=== PATIENT | male | born 1985 | race Caucasian/White ===

== ENCOUNTER 2020-12-18 20:41 | Inpatient (IN) | payer SELFPAY ==
[~2020-12-18] VITALS: Ht 167.6 cm; Wt 92.6 kg
[~2020-12-18 20:41] MED LIST: BACTRIM DS 8001 TAB PO; PERCOCET 325 MG1 TA2 PO; ULTRAM 50MG TAB50 MG PO
[2020-12-18 22:44] VITALS: BP 171/91; PULSE 91; TEMP 98.4
--- NOTE | 2020-12-18 23:15 | NUR ---
Vancomycin Initial Dosing Pharmacy Note Ordering provider: Nathaniel Patten MD 35 YO M Indication: R GREAT TOE CELLULITIS Relevant comorbidities: UNCONTROLLED DM GOAL: 10-20 HX: NO DOSING HX IDENTIFIED BMI: 27.9 WT: 78.34 KG OSH SCR: 0.8 EST CRCL ~ 141 ML/MIN T 1/2 ~ 6H OSH REPORTING AFEBRILE, WBC 8.5, CRP 3.3 MICRO IN PROCESS OSH IMAGINGING PER H&P - XRAY REPORTED NO CONCERN FOR OSTEO AND NO ABSCESS PT LOADED WITH 1.5 GM (~19 MG/KG) X 1. PT WAS THEN STARTED ON 1 GM Q8H. WILL FOLLOW RENAL FUNCTION, MICRO, AND CARE PLAN FOR NEED TO ADJUST THERAPY. THANK YOU FOR THIS DOSING CONSULT!
--- NOTE | 2020-12-18 23:17 | NUR ---
PATIENT PRESENT TO FLOOR FROM [facility], FOR RIGHT FOOT ULCER AND ELEVATED BLOOD SUGAR. VITAL STABLE, AFEBRILE. BLOOD 255 ON ADMISSION COVER ORDERED. PATIENT DENIES ANY PAIN IN THE RIGHT TOE AT THIS TIME. PATIENT A+OX4. ORIENTED TO ROON, CALL LIGHT IN REACH, BED LOW. WOUND CULTURE COLLECTED AND SENT. RIGHT TOE DRESSING DONE. WILL CONTINUE TO MONITOR.
[2020-12-18 23:26] VITALS: BP 171/91; PULSE 91; TEMP 98.4
[2020-12-18 23:50] LABS: CALCIUM 8.6 mg/dL (8.4-10.2); CREATININE, serum 0.83 (0.66-1.25); PHOSPHOROUS 4.9 mg/dL (2.5-4.5); POTASSIUM 4.2 mmol/L (3.4-5.0)
--- NOTE | 2020-12-19 02:40 | NUR ---
PATIENT RESTING IN BED. TETANUS SHOT GIVEN. WILL CONTINUE TO MONITOR.
[2020-12-19 04:21] VITALS: BP 209/109; PULSE 99; TEMP 99.5
--- NOTE | 2020-12-19 05:44 | NUR ---
PATIENT B/P 209/109, HOSPITALIST DUNIA MEYER MADE AWARE. HYDRALAZINE 10 MG IV GIVEN ORDERED. WILL CONTINUE TO MONITOR.
[2020-12-19 06:29] LABS: BASO % 0.3 % (0.0-2.0); EOS # 0.1 (0.0-0.7); EOS % 0.9 % (0-4.0); GRAN # 7.9 (1.4-6.5); GRAN % 75.7 % (42.2-75.2); HEMATOCRIT 38.1 % (42.0-52.0); HEMOGLOBIN 13.1 g/dl (13.5-18.0); LYMPH # 1.5 (1.2-3.4); LYMPH % 14.8 % (20.0-51.0); MEAN CELL VOLUME 81 fl (80.0-100.0); MEAN CORPUSCULAR HEMOGLOBIN 28 pg (27.0-31.0); MEAN CORPUSCULAR HGB CONC 34 g/dl (33.0-37.0); MEAN PLATELET VOLUME 11.2 fl (7.4-10.4); MONO # 0.8 (0.1-0.6); MONO % 7.7 % (1.7-9.3); PLATELET COUNT 440 K/mm3 (130-400); RED BLOOD COUNT 4.68 M/mm3 (4.20-5.60)
[2020-12-19 06:44] LABS: CALCIUM 8.5 mg/dL (8.4-10.2); CREATININE, serum 1.22 (0.66-1.25); POTASSIUM 3.4 mmol/L (3.4-5.0)
[2020-12-19 08:00] VITALS: BP 156/86; PULSE 92; TEMP 98.5
--- NOTE | 2020-12-19 08:19 | NUR ---
Patient sitting up on the side of the bed upon entering room. Patient seems to be doing well and has no complaints of pain. Assessment was completed and morning medications were administered. This RN assisted the patient in ordering breakfast.
[2020-12-19 11:27] VITALS: BP 147/79; PULSE 90; TEMP 98.6
[2020-12-19 16:09] VITALS: BP 196/89; PULSE 97; TEMP 99
--- NOTE | 2020-12-19 18:58 | NUR ---
Patient has done well today. Blood sugars have been running high today and insulin was administered before lunch and supper. Patient has denied any pain.
[2020-12-19 20:27] VITALS: BP 179/96; PULSE 111; TEMP 99
--- NOTE | 2020-12-19 21:21 | NUR ---
Patient laying in bed upon enter the room. Shift assessment completed. Patient alert and oriented. Patient denies any pain or discomfort. Denies SOB, N/V, headache, or dizziness. BP 179/96 at tonight. PRN Hydralazine given. All scheduled meds given per AUG. Call light within reach. Will continue to monitor.
[2020-12-19 23:54] VITALS: BP 157/80; PULSE 103; TEMP 98.8
[2020-12-20 04:13] VITALS: BP 155/83; PULSE 94; TEMP 98.6
--- NOTE | 2020-12-20 06:12 | NUR ---
BP was 155/83, BS 158 this morning. Patient denies pain or discomfort throughout the night. No acute distress noted throughout the night. Call light within reach. Will continue to monitor.
[2020-12-20 07:05] LABS: BASO % 0.3 % (0.0-2.0); EOS # 0.1 (0.0-0.7); EOS % 0.8 % (0-4.0); GRAN % 70.9 % (42.2-75.2); HEMATOCRIT 37.5 % (42.0-52.0); HEMOGLOBIN 12.5 g/dl (13.5-18.0); LYMPH # 1.9 (1.2-3.4); LYMPH % 19.1 % (20.0-51.0); MEAN CELL VOLUME 84 fl (80.0-100.0); MEAN CORPUSCULAR HEMOGLOBIN 28 pg (27.0-31.0); MEAN CORPUSCULAR HGB CONC 33 g/dl (33.0-37.0); MEAN PLATELET VOLUME 11.5 fl (7.4-10.4); MONO # 0.8 (0.1-0.6); MONO % 8.3 % (1.7-9.3); PLATELET COUNT 490 K/mm3 (130-400); RED BLOOD COUNT 4.49 M/mm3 (4.20-5.60); REDCELL DISTRIBUTION WIDTH-CV 12.3 % (11.5-14.5)
[2020-12-20 07:27] VITALS: BP 147/67; BP 154/91; PULSE 86; PULSE 87; TEMP 97.5; TEMP 98.4
--- NOTE | 2020-12-20 10:33 | NUR ---
Initial visit; Patient thanked Chaplian for looking in on him and offering prayer and God's blessings. Patient was receptive to Gun Barrel Finisher keeping him in her prayers.
[2020-12-20 10:57] VITALS: BP 181/90; PULSE 93; TEMP 98.7
--- NOTE | 2020-12-20 12:32 | NUR ---
Plan is to return home in [place] with friends/roomate and EMR contact Alexi Herreraos . Patient reports that his SIS Yohan Tamez is his secondary contact for EMR. . Patient reports that he does not have any healthcare insurance and is diabetic. Lost a toes last year. Patient reports that he uses [facility] for medicaitons. Educated client on applying for medicaid insurance and fill out financial advisor trainee packet. Will follow for supports, Denies the use of DME and his goal is to be able to return to work. Patient is tamazight speaking and will need coin collector.
[2020-12-20 15:30] VITALS: BP 198/93; PULSE 92; TEMP 98.6
--- NOTE | 2020-12-20 15:42 | NUR ---
SHOBHAE CONTACTED THIS NURSE TO INFORM OF BP AT 198/93,PT ASYMPTOMATIC. THIS NURSE ADMINISTERED HYDRALAZINE ORDERED, NURSE WILL F/U BP IN 15 MINUTES. CALL LIGHT WITHIN REACH.
--- NOTE | 2020-12-20 18:48 | NUR ---
THIS NURSE CONTACTED HOSPITALIST TO RELAY HIGH BP, HOSPITALIST INPUT ORDERS, THIS NURSE WILL REVIEW ORDERS/CHART. CALL LIGHT WITHIN REACH.
[2020-12-20 20:16] VITALS: BP 167/83; PULSE 110; TEMP 98.9
--- NOTE | 2020-12-20 22:01 | NUR ---
Shift assessment completed. Patient A/Ox4. Patient denies any pain or discomfort to his right foot. Right great toe cellulitis site dressing C/D/I. Patient denies any SOB, N/V, headache, or dizziness. All scheduled meds given per AUG. Call light within reach. Will continue to monitor.
[2020-12-21] VITALS (7 sets, daily range): BP systolic 154–204; BP diastolic 70–102; PULSE 83–108; TEMP 98.1–98.8
[2020-12-21 10:33] LABS: BASO % 0.5 % (0.0-2.0); EOS # 0.1 (0.0-0.7); EOS % 1.2 % (0-4.0); GRAN % 68.3 % (42.2-75.2); LYMPH # 1.8 (1.2-3.4); LYMPH % 20.1 % (20.0-51.0); MEAN CELL VOLUME 85 fl (80.0-100.0); MEAN CORPUSCULAR HEMOGLOBIN 28 pg (27.0-31.0); MEAN CORPUSCULAR HGB CONC 33 g/dl (33.0-37.0); MEAN PLATELET VOLUME 11.5 fl (7.4-10.4); MONO # 0.8 (0.1-0.6); MONO % 9.3 % (1.7-9.3); PLATELET COUNT 476 K/mm3 (130-400); RED BLOOD COUNT 4.33 M/mm3 (4.20-5.60); REDCELL DISTRIBUTION WIDTH-CV 12.4 % (11.5-14.5)
[2020-12-21 10:34] LABS: HEMATOCRIT 36.7 % (42.0-52.0)
[2020-12-21 10:40] LABS: CALCIUM 8.6 mg/dL (8.4-10.2); CREATININE, serum 3.51 (0.66-1.25); POTASSIUM 3.6 mmol/L (3.4-5.0)
--- NOTE | 2020-12-21 18:56 | NUR ---
PT BP RECORDED 204/102, PRN MEDICATION ADMINISTERED ORDERED, UPON F/U BP RECORDED AT 198/95, HOSPITALIST CONTACTED, ORDERS INPUT, THIS NURSE WILL ADMINISTER ONE DOSE MEDICATION ORDERED.
[2020-12-22 00:03] VITALS: BP 164/77; PULSE 95; TEMP 98.4
--- NOTE | 2020-12-22 02:36 | NUR ---
Ángel is calmly lying in bed he complains of irritation in his IV site in right forearm. RN flushed it without any leaking and flushed smoothly. It has a little redness in the area. He is getting IV fluids and IV antibiotics. RN started new IV in his right hand and have other IV get rested. RN didn't pull the other IV out for its still good. IVF transferred to new IV site. He deneis pain. His BP is high but he is getting Apresoline every 4hours PRN. Continue to follow.
[2020-12-22 02:57] VITALS: BP 161/98; PULSE 96; TEMP 97.8
[2020-12-22 06:51] LABS: BASO % 0.3 % (0.0-2.0); EOS # 0.1 (0.0-0.7); GRAN # 7.6 (1.4-6.5); HEMATOCRIT 38.3 % (42.0-52.0); HEMOGLOBIN 12.8 g/dl (13.5-18.0); LYMPH # 1.4 (1.2-3.4); LYMPH % 13.7 % (20.0-51.0); MEAN CELL VOLUME 84 fl (80.0-100.0); MEAN CORPUSCULAR HEMOGLOBIN 28 pg (27.0-31.0); MEAN CORPUSCULAR HGB CONC 33 g/dl (33.0-37.0); MEAN PLATELET VOLUME 11.2 fl (7.4-10.4); MONO # 0.9 (0.1-0.6); MONO % 8.5 % (1.7-9.3); PLATELET COUNT 533 K/mm3 (130-400); RED BLOOD COUNT 4.55 M/mm3 (4.20-5.60); REDCELL DISTRIBUTION WIDTH-CV 12.4 % (11.5-14.5)
[2020-12-22 07:02] LABS: CALCIUM 8.4 mg/dL (8.4-10.2); CREATININE, serum 3.97 (0.66-1.25); POTASSIUM 3.8 mmol/L (3.4-5.0)
[2020-12-22 09:00] VITALS: BP 189/92; PULSE 95; TEMP 98.3
[2020-12-22 13:01] VITALS: BP 173/95; PULSE 80; TEMP 98.5
--- NOTE | 2020-12-22 15:56 | NUR ---
SYEDA attended clinical rounds. The patient is going to need insulin upon discharge. The patient is self pay. SYEDA staffed with the pharmacist and discussed the [facility]. The pharmacist plans to contact the [facility] to see what insulin they have in stock and plans on looking into additional programs for insulin. SYEDA then met with the patient to review discharge plan. SYEDA utilized the interpretor services. The patient lives in [place] with friends and works at [employer]. He has a vehicle and is able to drive. He states that he does not have any family that live nearby. He states that he is not and does not have any children. His mother, Yohan, is alive, but she lives in [place]. He has a sister, Yohan (ph#[phone]), that lives in [place]. He reports that he does not have an ID here. SYEDA discussed getting set up with primary care at [facility] in [place], due to him being self pay. The patient was interested in this. SYEDA contacted Lachelle at [facility] and secured the patient and appointment there on Sunday, 12/27, at 1330. Amaya reports that they are able to take him, even without an ID. SYEDA faxed the patient's records to [facility]. SYEDA will need to fax the patient's d/c orders to [facility]. SYEDA to provide the patient with [facility]'s client information packet. SYEDA also discussed using the [facility] to get him a months worth of insulin. The patient was agreeable to this. SYEDA completed the Eligibility Attestation Form with him. The patient verbalized understanding and signed the form.
[2020-12-22 15:58] VITALS: BP 180/93; PULSE 92; TEMP 98.4
[2020-12-22 20:15] VITALS: BP 192/95; PULSE 95; TEMP 99
--- NOTE | 2020-12-22 23:52 | NUR ---
Dressing changed done in his right great toe. It's red nontender around the area. Looks like in the process of healing. Covered with nonadherent dressing and stretch bandage. No pain noted.
[2020-12-23 00:27] VITALS: BP 157/90; PULSE 86; TEMP 98.7
--- NOTE | 2020-12-23 03:51 | NUR ---
Ángel was feeling nauseous last night. He asked for something to get rid of it. Gretel was ordered and help him. Otherwise he is been fine all night and no complains of pain.
[2020-12-23 04:39] VITALS: BP 162/87; PULSE 77; TEMP 98.2
[2020-12-23 06:47] LABS: BASO % 0.4 % (0.0-2.0); EOS # 0.2 (0.0-0.7); EOS % 2.4 % (0-4.0); GRAN # 6.2 (1.4-6.5); GRAN % 66.3 % (42.2-75.2); HEMOGLOBIN 11.3 g/dl (13.5-18.0); LYMPH # 1.9 (1.2-3.4); LYMPH % 19.9 % (20.0-51.0); MEAN CELL VOLUME 84 fl (80.0-100.0); MEAN CORPUSCULAR HEMOGLOBIN 28 pg (27.0-31.0); MEAN CORPUSCULAR HGB CONC 34 g/dl (33.0-37.0); MEAN PLATELET VOLUME 10.6 fl (7.4-10.4); MONO % 10.7 % (1.7-9.3); PLATELET COUNT 509 K/mm3 (130-400); RED BLOOD COUNT 4.02 M/mm3 (4.20-5.60); REDCELL DISTRIBUTION WIDTH-CV 12.3 % (11.5-14.5)
[2020-12-23 06:53] LABS: HEMATOCRIT 33.7 % (42.0-52.0)
[2020-12-23 07:01] LABS: ALBUMIN 2.5 gm/dL (3.5-5.0); CALCIUM 8.4 mg/dL (8.4-10.2); CREATININE, serum 4.3 (0.66-1.25); PHOSPHOROUS 6.2 mg/dL (2.5-4.5); POTASSIUM 3.7 mmol/L (3.4-5.0)
[2020-12-23 08:05] VITALS: BP 174/91; PULSE 94; TEMP 98.3
--- NOTE | 2020-12-23 11:19 | NUR ---
0700 PT RECEIVED RESTING IN BED. NO S/S OF DISTRESS NOTED. PT DENIES PAIN. COMFORT MEASURES IN PLACE. WILL CONTINUE TO MONITOR. 0800 PT ENCOURAGED TO ORDER BREAKFAST AND HE DID. PT ENCOURAGE TO USE THE URINAL FOR US TO COLLECT A SPECIMEN AND HE AGREES. 0830 MEDICATIONS ADMINISTERED ORDERED. PT VOICES NO CONCERNS. US TECH AT THE BEDSIDE TO COMPLETE RENAL ULTRASOUND.
[2020-12-23 11:47] VITALS: BP 184/97; PULSE 78; TEMP 98.8
[2020-12-23 13:10] LABS: MUCOUS Present /lpf; PH 5 (5-8); SQUAMOUS EPITHELIAL 0-2 /hpf; URINE APPEARANCE Hazy; URINE BACTERIA Rare /hpf; URINE BILIRUBIN Negative (NEGATIVE); URINE BLOOD Negative (NEGATIVE); URINE COLOR Yellow; URINE GLUCOSE 1+ (NEGATIVE); URINE KETONE Negative (NEGATIVE); URINE LEUKOCYTE ESTERASE Negative (NEGATIVE); URINE NITRATE Negative (NEGATIVE); URINE PROTEIN(semi-quant) 2+ (NEGATIVE); URINE UROBILINOGEN Negative (NEGATIVE)
[2020-12-23 13:18] LABS: COLLECTION METHOD CLEAN CATCH
--- NOTE | 2020-12-23 14:41 | NUR ---
SW attended clinical rounds. The patient's creatine and pressures have went up. The clinical team is thinking that the earliest the patient would be able to d/c would be on Sunday, 12/27. SW contacted [facility] and rescheduled the patient's appointment there on 01/03 at 1300. SYEDA informed the patient and provided him CHM application.
[2020-12-23] MEDS ORDERED: BASAGLAR K100 UNIT/1 SQ (15:56)
[2020-12-23] MEDS ORDERED: HUMALOG PEN100 U/ML SQ (15:56)
--- NOTE | 2020-12-23 16:12 | NUR ---
SYEDA collaborated with the pharmacist and PA. The PA provided YSEDA with scripts for the insulin that will be prescribed to the patient upon discharge. SW contacted and faxed the scripts and attestation to the [facility] and requested that they send the medication to the hospital.
[2020-12-23 17:08] VITALS: BP 166/86; PULSE 98; TEMP 98.6
[2020-12-23 21:27] VITALS: BP 183/90; PULSE 101; TEMP 98.7
[2020-12-24] VITALS (7 sets, daily range): BP systolic 140–206; BP diastolic 82–101; PULSE 69–98; TEMP 98.3–98.9
[2020-12-24 07:13] LABS: BASO # 0.1 (0.0-0.2); BASO % 0.5 % (0.0-2.0); EOS # 0.2 (0.0-0.7); EOS % 1.8 % (0-4.0); GRAN % 67.6 % (42.2-75.2); HEMOGLOBIN 11.5 g/dl (13.5-18.0); LYMPH # 1.8 (1.2-3.4); LYMPH % 17.5 % (20.0-51.0); MEAN CELL VOLUME 84 fl (80.0-100.0); MEAN CORPUSCULAR HEMOGLOBIN 28 pg (27.0-31.0); MEAN CORPUSCULAR HGB CONC 33 g/dl (33.0-37.0); MEAN PLATELET VOLUME 10.9 fl (7.4-10.4); MONO # 1.2 (0.1-0.6); PLATELET COUNT 554 K/mm3 (130-400); RED BLOOD COUNT 4.12 M/mm3 (4.20-5.60); REDCELL DISTRIBUTION WIDTH-CV 12.4 % (11.5-14.5)
[2020-12-24 07:14] LABS: HEMATOCRIT 34.6 % (42.0-52.0)
[2020-12-24 07:17] LABS: ALBUMIN 2.6 gm/dL (3.5-5.0); CALCIUM 8.6 mg/dL (8.4-10.2); CREATININE, serum 4.72 (0.66-1.25); PHOSPHOROUS 6.6 mg/dL (2.5-4.5); POTASSIUM 3.7 mmol/L (3.4-5.0)
--- NOTE | 2020-12-24 08:57 | NUR ---
Pt sleeping upon entry, easily awakened. No C/O pain at this time. Shift assessments complete. Left Pt bed in lowest position, call light in reach.
--- NOTE | 2020-12-24 13:14 | NUR ---
SYEDA contacted the [facility] to follow up on delivery of the insulin. The exceptional children's teacher reports that they are shipping the insulin today and that the earliest the insulin will arrive to the hospital will be tomorrow. SYEDA notified our pharmacist, Christianne.
--- NOTE | 2020-12-24 20:30 | NUR ---
Patient in bed resting. Alert and oriented x 3. Assessment complete. Ulcer to right great toe with gauze dressing is CDI. 2nd toe amputated. Patient denies pain at this time. Denies further needs at this time.
--- NOTE | 2020-12-24 21:33 | NUR ---
BP recheck after scheduled medications at 174/88, prn dose of apresoline given.
--- NOTE | 2020-12-24 22:29 | NUR ---
Provided patient with home glucometer, educated patient on use of glucometer and supplies. Educated on signs and symptoms of hyper/hypo glycemia. Patient verbalized understanding. States he was diagnosed with DM approximately 2 years ago and ran out of supplies approximately 6 months ago so he has been unable to check his blood sugar at home. All questions answered. Denies further needs at this time.
[2020-12-25] VITALS (11 sets, daily range): BP systolic 153–214; BP diastolic 71–104; PULSE 77–98; TEMP 97.8–98.9
--- NOTE | 2020-12-25 05:42 | NUR ---
Patient doing well throughout the night, PRN hydralazine given for increased BP. Educated patient on medications. Denies needs at this time. Will report off to day shift.
[2020-12-25 07:00] LABS: HEMOGLOBIN 10.8 g/dl (13.5-18.0); MEAN CELL VOLUME 84 fl (80.0-100.0); MEAN CORPUSCULAR HEMOGLOBIN 28 pg (27.0-31.0); MEAN CORPUSCULAR HGB CONC 33 g/dl (33.0-37.0); MEAN PLATELET VOLUME 10.7 fl (7.4-10.4); PLATELET COUNT 531 K/mm3 (130-400); RED BLOOD COUNT 3.89 M/mm3 (4.20-5.60); REDCELL DISTRIBUTION WIDTH-CV 12.6 % (11.5-14.5)
[2020-12-25 07:09] LABS: CALCIUM 8.8 mg/dL (8.4-10.2); CREATININE, serum 4.91 (0.66-1.25); POTASSIUM 3.7 mmol/L (3.4-5.0)
[2020-12-25 07:26] LABS: HEMATOCRIT 32.7 % (42.0-52.0)
--- NOTE | 2020-12-25 07:50 | NUR ---
PT PLEASANT, DENIES PAIN OR DISCOMFORT, BP ELEVATED, TOO EARLY TO GIVE HYDRALAZINE, NORMAL BP MEDICATIONS GIVEN AND WILL REASSESS. NO INSULIN NEEDED, PT SITTING UP TO EAT BREAKFAST, TOOK PILLS WITH WATER, ZOSYN INFUSING, NO OTHER NEEDS AT THIS TIME.
--- NOTE | 2020-12-25 12:32 | NUR ---
HYDRALAZINE GIVEN FOR INC BP, WILL REASSESS BP
--- NOTE | 2020-12-25 17:13 | NUR ---
pt pleasant, aox4, denies pain, pt sleeping most of the day, no other needs at this time.
--- NOTE | 2020-12-25 18:08 | NUR ---
BP ELEVATED EVEN AFTER HYDRALAZINE, WILL REASSESS IN ANOTHER 30MIN
--- NOTE | 2020-12-25 20:00 | NUR ---
Patient in bed resting. Alert and oriented x 3. Assessment complete. Denies pain at this time. Up ambulating in room with steady gait. States he feels anxious being "stuck in his room for so long". States he would like to go home. Denies further needs at this time.
--- NOTE | 2020-12-25 21:45 | NUR ---
BP remains elevated after PO medications. PRN hydralazine given at this time.
[2020-12-26] VITALS (9 sets, daily range): BP systolic 148–185; BP diastolic 74–97; PULSE 79–102; TEMP 98.5–99.2
--- NOTE | 2020-12-26 05:56 | NUR ---
Patient doing well, denies pain at this time. States he is anxious to go home. Denies further needs at this time. Will report off to day shift.
--- NOTE | 2020-12-26 08:00 | NUR ---
PT PLEASANT, A0X4, DENIES PAIN/SOB, ASSESSMENT PERFORMED, MEDICATIONS GIVEN, NO OTHER NEEDS
[2020-12-26 08:09] LABS: BASO # 0.1 (0.0-0.2); BASO % 0.5 % (0.0-2.0); EOS # 0.2 (0.0-0.7); GRAN # 7.9 (1.4-6.5); GRAN % 71.2 % (42.2-75.2); HEMOGLOBIN 11.1 g/dl (13.5-18.0); LYMPH # 1.7 (1.2-3.4); LYMPH % 14.9 % (20.0-51.0); MEAN CELL VOLUME 85 fl (80.0-100.0); MEAN CORPUSCULAR HEMOGLOBIN 28 pg (27.0-31.0); MEAN CORPUSCULAR HGB CONC 33 g/dl (33.0-37.0); MEAN PLATELET VOLUME 10.8 fl (7.4-10.4); MONO # 1.2 (0.1-0.6); MONO % 11.1 % (1.7-9.3); PLATELET COUNT 548 K/mm3 (130-400); RED BLOOD COUNT 3.93 M/mm3 (4.20-5.60); REDCELL DISTRIBUTION WIDTH-CV 12.5 % (11.5-14.5)
[2020-12-26 08:24] LABS: CALCIUM 8.7 mg/dL (8.4-10.2); CREATININE, serum 5.06 (0.66-1.25); HEMATOCRIT 33.4 % (42.0-52.0); MAGNESIUM 2.5 mg/dL (1.6-2.3); PHOSPHOROUS 6.6 mg/dL (2.5-4.5); POTASSIUM 3.9 mmol/L (3.4-5.0)
--- NOTE | 2020-12-26 17:30 | NUR ---
PT ALREADY ATE DINNER AFTER SUGAR WAS TAKEN, PT NOT GIVEN INSULIN IT WOULD NOT BE ACCURATE, PT PLEASANT, AOX4, HYDRALAZINE GIVEN FOR INC BP WILL REASSESS, DENIES PAIN, NO OTHE RNEED
[2020-12-27 03:45] VITALS: BP 164/83; PULSE 91; TEMP 98.6
[2020-12-27 06:34] LABS: BASO % 0.4 % (0.0-2.0); EOS # 0.2 (0.0-0.7); GRAN # 7.7 (1.4-6.5); GRAN % 72.7 % (42.2-75.2); HEMOGLOBIN 10.4 g/dl (13.5-18.0); LYMPH # 1.5 (1.2-3.4); LYMPH % 14.4 % (20.0-51.0); MEAN CELL VOLUME 86 fl (80.0-100.0); MEAN CORPUSCULAR HEMOGLOBIN 28 pg (27.0-31.0); MEAN CORPUSCULAR HGB CONC 33 g/dl (33.0-37.0); MEAN PLATELET VOLUME 10.7 fl (7.4-10.4); MONO # 1.1 (0.1-0.6); MONO % 10.2 % (1.7-9.3); PLATELET COUNT 548 K/mm3 (130-400); REDCELL DISTRIBUTION WIDTH-CV 12.5 % (11.5-14.5)
[2020-12-27 06:36] LABS: HEMATOCRIT 31.8 % (42.0-52.0)
[2020-12-27 06:41] LABS: CALCIUM 8.7 mg/dL (8.4-10.2); CREATININE, serum 5.26 (0.66-1.25); MAGNESIUM 2.5 mg/dL (1.6-2.3); PHOSPHOROUS 6.4 mg/dL (2.5-4.5)
[2020-12-27 07:27] VITALS: BP 167/85; PULSE 94; TEMP 98.4
--- NOTE | 2020-12-27 08:17 | NUR ---
Pt awake upon entry, no C/O painb at this time. Shift assessments complete, left Pt call light in reach, bed in lowest position.
--- NOTE | 2020-12-27 09:37 | NUR ---
SW attended clinical rounds. The patient's kidney function has worsened. SW staffed with the pharmacist, Barber. Barber reports that the patient's insulin, from the [facility], was delivered to our pharmacy on Sunday, along with a glucometer and test strips. SW notified the community health worker of the patient's appointment at [facility].
[2020-12-27 11:19] VITALS: BP 158/90; PULSE 77; TEMP 98.1
[2020-12-27 17:07] VITALS: BP 195/97; PULSE 91; TEMP 98.5
[2020-12-27 19:26] VITALS: BP 168/94; PULSE 99; TEMP 98.6
[2020-12-28 01:47] VITALS: BP 181/90; PULSE 88; TEMP 98.4
[2020-12-28 04:39] VITALS: BP 173/87; PULSE 92; TEMP 98.8
[2020-12-28 07:20] LABS: BASO # 0.1 (0.0-0.2); BASO % 0.5 % (0.0-2.0); EOS # 0.3 (0.0-0.7); EOS % 2.3 % (0-4.0); GRAN # 8.2 (1.4-6.5); HEMOGLOBIN 10.8 g/dl (13.5-18.0); LYMPH # 1.4 (1.2-3.4); LYMPH % 12.8 % (20.0-51.0); MEAN CELL VOLUME 86 fl (80.0-100.0); MEAN CORPUSCULAR HEMOGLOBIN 28 pg (27.0-31.0); MEAN CORPUSCULAR HGB CONC 33 g/dl (33.0-37.0); MONO % 9.1 % (1.7-9.3); PLATELET COUNT 574 K/mm3 (130-400); REDCELL DISTRIBUTION WIDTH-CV 12.8 % (11.5-14.5)
[2020-12-28 07:28] LABS: CREATININE, serum 4.38 (0.66-1.25); MAGNESIUM 2.6 mg/dL (1.6-2.3); PHOSPHOROUS 6.6 mg/dL (2.5-4.5); POTASSIUM 4.3 mmol/L (3.4-5.0)
[2020-12-28 07:29] LABS: HEMATOCRIT 32.8 % (42.0-52.0)
[2020-12-28 07:50] VITALS: BP 167/87; PULSE 99; TEMP 98.9
--- NOTE | 2020-12-28 08:34 | NUR ---
Pt napping upon entry, easily awakened. No C/O painnat this time. PRN apresoline given, systolic <160. Shift assessments complete, left Pt call light in reach, bed in lowest position.
[2020-12-28 11:46] VITALS: BP 162/91; PULSE 80; TEMP 98.5
[2020-12-28 16:45] VITALS: BP 166/86; PULSE 97; TEMP 98.7
[2020-12-28 20:53] VITALS: BP 170/91; PULSE 85; TEMP 98.4
[2020-12-28 23:01] LABS: CREATININE, serum 4.38 (0.66-1.25)
[2020-12-28 23:08] LABS: URINE TOTAL VOLUME 2975 mL
[2020-12-29 00:01] VITALS: BP 166/88; PULSE 89; TEMP 98
[2020-12-29 04:44] VITALS: BP 163/89; PULSE 90; TEMP 98.7
--- NOTE | 2020-12-29 05:37 | NUR ---
Ángel just slept all night. Denies pain and no compalins noted. He is expecting that he will go home today. 1x Apresoline given for high blood pressure. He is asymptomatic. Continue to follow.
[2020-12-29 07:25] LABS: BASO % 0.4 % (0.0-2.0); EOS # 0.2 (0.0-0.7); EOS % 2.4 % (0-4.0); GRAN # 6.6 (1.4-6.5); GRAN % 73.2 % (42.2-75.2); LYMPH # 1.3 (1.2-3.4); LYMPH % 14.2 % (20.0-51.0); MEAN CELL VOLUME 86 fl (80.0-100.0); MEAN CORPUSCULAR HEMOGLOBIN 28 pg (27.0-31.0); MEAN CORPUSCULAR HGB CONC 33 g/dl (33.0-37.0); MEAN PLATELET VOLUME 10.8 fl (7.4-10.4); MONO # 0.9 (0.1-0.6); MONO % 9.4 % (1.7-9.3); PLATELET COUNT 575 K/mm3 (130-400); RED BLOOD COUNT 3.57 M/mm3 (4.20-5.60); REDCELL DISTRIBUTION WIDTH-CV 12.6 % (11.5-14.5)
[2020-12-29 07:31] LABS: HEMATOCRIT 30.7 % (42.0-52.0)
[2020-12-29 07:36] LABS: ALBUMIN 2.8 gm/dL (3.5-5.0); CALCIUM 8.9 mg/dL (8.4-10.2); CREATININE, serum 4.04 (0.66-1.25); PHOSPHOROUS 5.6 mg/dL (2.5-4.5); POTASSIUM 4.4 mmol/L (3.4-5.0)
--- NOTE | 2020-12-29 08:00 | NUR ---
Pt sleeping upon entry, easily awakened, no C/O pain at this time. shift assessments complete, left Pt call light in reach, bed in lowest position.
[2020-12-29 08:22] VITALS: BP 184/83; PULSE 94; TEMP 98.5
[2020-12-29 11:42] VITALS: BP 161/80; PULSE 83; TEMP 98.8
[2020-12-29] MEDS ORDERED: PRINCIPEN500 MG PO (12:21)
[2020-12-29] MEDS ORDERED: CIPRO 500MG TA500 MG PO (12:22)
[2020-12-29] MEDS ORDERED: LOPRESSOR100 MG PO (12:22)
[2020-12-29] MEDS ORDERED: NORVASC 10MG10 MG PO (12:22)
[2020-12-29] MEDS ORDERED: ZESTRIL 20MG TA20 MG PO (12:23)
[2020-12-29] MEDS ORDERED: TUMS500 MG PO (12:27)
[2020-12-29] MEDS ORDERED: SODIUM BICARBO650 MG PO (12:29)
--- NOTE | 2020-12-29 13:47 | NUR ---
The patient is ready to d/c today. The pharmacist provided the patient's RN with the patient's insulin and supplies from the [facility]. SYEDA met with the patient to review d/c plan. SYEDA utilized the intrepretor services. The patient plans to return home with his roommates. He states that he will transport himself back home. The patient is also being prescribed seven other medications and the scripts have been electronially transmitted to [email or web address]. The patient reports that he will be able to afford and pay for those other medications. The patient had no other questions or concerns for SYEDA. The patient is to discharge back home with his roommates today, 12/29. SYEDA faxed the patient's d/c orders to [facility]. No additional needs a this time.
--- NOTE | 2020-12-29 15:35 | NUR ---
Pt discharged to home, discussed discharge packet with Pt. Pt education provided on glucometer, and insulin pen use. Pt escorted to entrance by PCT, Pt left in own vehicle.
== END 2020-12-29 15:35 | disposition home or self-care (01) | DRG 639 ==
LOC: MEDICAL 20:41
PROVIDERS: Internal Medicine; Internal Medicine Nephrology; Nurse Practitioner Family; Physician Assistant; ADMIT Student in an Organized Health Care Education/Training Program
DX: E11.628 Type 2 diabetes mellitus with other skin complications (principal); E11.65 Type 2 diabetes mellitus with hyperglycemia; L03.031 Cellulitis of right toe; R13.10 Dysphagia, unspecified; I10 Essential (primary) hypertension; N17.9 Acute kidney failure, unspecified; R00.0 Tachycardia, unspecified; E83.39 Other disorders of phosphorus metabolism
CPT/HCPCS: 99222-AI; 99232-AI; 99239; A9540; A9567; J0360; J1644; J1650; J1815; J2405; J2543; J3370; J7030; J7050; J7120

== ENCOUNTER 2022-02-17 10:32 | Inpatient (IN) | payer SELFPAY ==
[~2022-02-17] VITALS: Ht 167.6 cm; Wt 78.0 kg
[~2022-02-17 10:32] MED LIST changes: +BASAGLAR K100 UNIT/1 SQ; +CIPRO 500MG TA500 MG PO; +HUMALOG PEN100 U/ML SQ; +LOPRESSOR100 MG PO; +NORVASC 10MG10 MG PO; +PRINCIPEN500 MG PO; +SODIUM BICARBO650 MG PO; +TUMS500 MG PO; +ZESTRIL 20MG TA20 MG PO
[2022-02-17 11:54] LABS: BASO # 0.1 K/mm3 (0.0-0.2); BASO % 0.5 % (0.0-2.0); EOS # 0.4 K/mm3 (0.0-0.7); EOS % 3.8 % (0.0-4.0); GRAN # 7.5 K/mm3 (1.4-6.5); GRAN % 68.7 % (42.2-75.2); LYMPH # 2.3 K/mm3 (1.2-3.4); LYMPH % 20.9 % (20.0-51.0); MEAN CELL VOLUME 83 fl (80.0-100.0); MEAN CORPUSCULAR HEMOGLOBIN 28 pg (27-31); MEAN CORPUSCULAR HGB CONC 34 g/dl (33.0-37.0); MONO # 0.6 K/mm3 (0.1-0.6); MONO % 5.8 % (1.7-9.3); PLATELET COUNT 592 K/mm3 (130-400); RED BLOOD COUNT 3.55 M/mm3 (4.20-5.60); REDCELL DISTRIBUTION WIDTH-CV 12.2 % (11.5-14.5)
[2022-02-17 11:55] LABS: HEMATOCRIT 29.4 % (42.0-52.0)
[2022-02-17 12:03] LABS: ACETONE,SERUM NEGATIVE
[2022-02-17 12:09] LABS: ALANINE AMINOTRANSFERASE 19 U/L (0-55); ALBUMIN 2.3 gm/dL (3.5-5.0); ALKALINE PHOSPHATASE 198 U/L (40-150); ANION GAP 10 mmol/L (7-16); AST,SGOT 19 U/L (5-34); BILIRUBIN,TOTAL 0.3 mg/dL (0.2-1.2); BLOOD UREA NITROGEN 14 mg/dL (9-21); CALCIUM 9.4 mg/dL (8.4-10.2); CARBON DIOXIDE 22 mmol/L (22-29); CHLORIDE 106 mmol/L (98-107); CREATININE, serum 1.42 mg/dL (0.72-1.25); GLUCOSE 367 mg/dL (70-99); POTASSIUM 3.3 mmol/L (3.5-4.5); SODIUM 138 mmol/L (136-145); TOTAL PROTEIN 6.7 gm/dL (6.2-8.1)
[2022-02-17] MEDS ORDERED: GLUCOPHAGE1000 MG (13:39)
[2022-02-17] MEDS ORDERED: CRESTOR20 MG (13:40)
[2022-02-17 15:16] LABS: COLLECTION METHOD CLEAN CATCH
[2022-02-17 15:23] LABS: PH 6.5 (5.0-8.5); URINE APPEARANCE Clear (CLEAR/HAZY); URINE BLOOD 2+ (NEGATIVE); URINE COLOR Yellow (YELLOW); URINE GLUCOSE 2+ (NEGATIVE); URINE KETONE Negative (NEGATIVE); URINE NITRATE Negative (NEGATIVE); URINE PROTEIN(semi-quant) 3+ (NEGATIVE); URINE UROBILINOGEN 0.2 E.U/dL (0.2-1.0)
[2022-02-17 15:24] LABS: MUCOUS Present (NOT PRESENT); SQUAMOUS EPITHELIAL 0-2 /hpf (0-10); URINE BACTERIA None Seen /hpf (NONE SEEN); URINE RBC 0-2 /hpf (0-2)
--- NOTE | 2022-02-17 17:11 | NUR ---
Vancomycin Initial Dosing Pharmacy Note Ordering provider: MD JAMILA Indication/duration: NECROTIC TOE Relevant comorbidities: DM LABS: WBC 10.9, SCR 1.4, CRCL ~60 Recommendation: VANCOMYCIN ~17 MG/KG Maintenance dose: 1.25 grams every 12 hours Trough goal: 15; TROUGH IF CLINICALLY INDICATED
--- NOTE | 2022-02-17 19:43 | NUR ---
PT ARRIVES VIA CART FROM ED. IS ALERT AND ORIENTED X4.
[2022-02-17 19:57] VITALS: BP 196/96; PULSE 82; TEMP 98
--- NOTE | 2022-02-17 20:44 | NUR ---
PT TAKES HS MEDS INCLUDING APRESOLINE 10MG PO FOR KDL=801. PT IS ALERT AND ORIENTED, SPEAKS GOOD BROKEN ROMANIAN. IS ORIENTED X4. IS AWARE HE WILL BE HAVING SURGERY IN AM FOR AMPUTATION OF LT THIRD TOE. ADMISSION QUESTIONS COMPLETE. SACK LUNCH GIVEN.
[2022-02-17 23:28] VITALS: BP 154/86; PULSE 75; TEMP 98.3
[2022-02-18] VITALS (11 sets, daily range): BP systolic 134–195; BP diastolic 74–99; PULSE 65–97; TEMP 96.7–98.6
--- NOTE | 2022-02-18 01:00 | NUR ---
TAKES SCHEDULED ES TYLENOL PO WITH SIP OF WATER.
--- NOTE | 2022-02-18 04:30 | NUR ---
PT SIGNS CONSENT FOR SURGERY TODAY.
[2022-02-18 06:51] LABS: BASO # 0.1 K/mm3 (0.0-0.2); BASO % 0.6 % (0.0-2.0); EOS # 0.6 K/mm3 (0.0-0.7); GRAN # 5.4 K/mm3 (1.4-6.5); GRAN % 57.4 % (42.2-75.2); LYMPH # 2.7 K/mm3 (1.2-3.4); MEAN CELL VOLUME 84 fl (80.0-100.0); MEAN CORPUSCULAR HGB CONC 34 g/dl (33.0-37.0); MEAN PLATELET VOLUME 12.7 fl (7.4-10.4); MONO # 0.6 K/mm3 (0.1-0.6); MONO % 6.8 % (1.7-9.3); PLATELET COUNT 507 K/mm3 (130-400); RED BLOOD COUNT 3.53 M/mm3 (4.20-5.60); REDCELL DISTRIBUTION WIDTH-CV 12.6 % (11.5-14.5)
[2022-02-18 07:18] LABS: C-REACTIVE PROTEIN 0.49 mg/dL (0.00-0.50); CREATININE, serum 1.21 mg/dL (0.72-1.25); MAGNESIUM 1.9 mg/dL (1.6-2.6); POTASSIUM 3.4 mmol/L (3.5-4.5)
[2022-02-18 07:24] LABS: HEMATOCRIT 29.5 % (42.0-52.0); HEMOGLOBIN 9.9 g/dl (13.5-18.0); MEAN CORPUSCULAR HEMOGLOBIN 28 pg (27-31)
[2022-02-18] MEDS ORDERED: ZESTRIL 20MG TA20 MG PO (09:30)
[2022-02-18] MEDS ORDERED: NORVASC 5MG5 MG/TAB PO (09:31)
[2022-02-18] MEDS ORDERED: TUMS500 MG PO (09:31)
[2022-02-18] MEDS ORDERED: GLUCOTROL 5M5 MG/TAB PO (09:36)
--- NOTE | 2022-02-18 09:48 | NUR ---
pt resting, aox4, ra, bed low position, no needs at this time
--- NOTE | 2022-02-18 10:28 | NUR ---
pt eating, c/o no pain, urinating w/o difficulites, will dc when pt is ready
--- NOTE | 2022-02-18 12:40 | NUR ---
DISCHARGED DISCUSSED WITH PT, IV TAKEN OUT, POST OP VITALS COMPLETED, ALL QUESTIONS AND CONCERNS WERE ADDRESSED, PT WHEELED OUT BY WHEELCHAIR TO PRIVATE VEHICLE WITH ALL HIS BELONGINGS
--- NOTE | 2022-02-18 15:17 | NUR ---
Lieutenant Fire Fighter met with patient for intake assessment/discharge planning: Patient is alert and oriented, and he is getting dressed; he states his friend is coming to pick him up in 10 minutes. He is agreeable to speak with this Lieutenant Fire Fighter, and he states he lives with friends, has no other family supports. He has no primary care physician, and he has limited finances as he is not working. He discusses his med list in his discharge packet, stating he cannot afford to pick them up. He is accepting of Prescription Assistance to diamond picker his medications, and he verbalizes understanding this is in coordination with [facility]. He is willing to diamond picker his medications today or Sunday following the holiday . Lieutenant Fire Fighter updated his RN, who notifies Dr. Patten. Paper scripts written for patient medication and given to patient. Lieutenant Fire Fighter contacted pharmacist at [facility] and coordinates patient Prescription Assistance, faxed copy of voucher and scripts to [facility] . Patient handed scripts and original voucher as he is wheeled out of the hospital by nursing staff; he states his ride is here. He expresses gratitude. *Discharge plan: to home with friends and prescription assistance*
== END 2022-02-18 13:05 | disposition home or self-care (01) | DRG 256 ==
LOC: COL.ER 10:32 → SURG 16:55
PROVIDERS: Nurse Practitioner Family; Orthopaedic Surgery; ADMIT Internal Medicine
PROC: 0Y6U0Z1 Detachment at Left 3rd Toe, High, Open Approach (ICD-10-PCS; principal; 2022-02-18 08:30)
DX: E10.52 Type 1 diabetes mellitus with diabetic peripheral angiopathy with gangrene (principal); I96 Gangrene, not elsewhere classified; N17.9 Acute kidney failure, unspecified; E78.5 Hyperlipidemia, unspecified; G47.00 Insomnia, unspecified; E10.65 Type 1 diabetes mellitus with hyperglycemia; E87.6 Hypokalemia; I16.0 Hypertensive urgency; I12.9 Hypertensive chronic kidney disease with stage 1 through stage 4 chronic kidney disease, or unspecified chronic kidney disease; E10.22 Type 1 diabetes mellitus with diabetic chronic kidney disease; N18.9 Chronic kidney disease, unspecified; D64.9 Anemia, unspecified; D75.839 Thrombocytosis, unspecified; K21.9 Gastro-esophageal reflux disease without esophagitis; E83.52 Hypercalcemia; Z90.49 Acquired absence of other specified parts of digestive tract; Z79.4 Long term (current) use of insulin; Z72.89 Other problems related to lifestyle; Z89.421 Acquired absence of other right toe(s)
CPT/HCPCS: J0360; J0690; J0696; J1815; J1956; J2250; J2704; J3010; J3370; J7030; J7050